=== PATIENT | female | born 1975 | race African-American/Black ===

== ENCOUNTER 2016-08-31 22:41 | Emergency (ER) | payer OTHER ==
[~2016-08-31 22:41] MED LIST: ALBUTEROL PO; [UNRECOGNIZED DRUG - REMARK] PO; [UNRECOGNIZED DRUG - REMARK] PO; [UNRECOGNIZED DRUG - REMARK] PO
== END 2016-08-31 23:54 | disposition home or self-care (01) ==
LOC: ER 22:41
PROC: 2W3TXYZ Immobilization of Left Foot using Other Device (ICD-10-PCS; principal; 2016-08-31)
DX: S96.912A Strain of unspecified muscle and tendon at ankle and foot level, left foot, initial encounter (principal); M25.572 Pain in left ankle and joints of left foot; M24.9 Joint derangement, unspecified; J45.909 Unspecified asthma, uncomplicated; F17.200 Nicotine dependence, unspecified, uncomplicated; Z88.8 Allergy status to other drugs, medicaments and biological substances; Z91.013 Allergy to seafood; Z91.011 Allergy to milk products; Z79.899 Other long term (current) drug therapy; X58.XXXA Exposure to other specified factors, initial encounter
CPT/HCPCS: 73610-LT; 73630-LT; 96372; 99283; J1170; J2550; J2930